=== PATIENT | male | born 1960 | race Caucasian/White ===

== ENCOUNTER 2017-07-30 22:26 | Emergency (ER) | payer BC ==
[2017-07-30 22:37] VITALS: RESP 20; TEMP 96.8
[2017-07-30] MEDS ORDERED: PROPARACAINE HCL 0.5% OPHTHALMIC SOL OP ONE (22:39)
[2017-07-30] MEDS ORDERED: PROPARACAINE HCL 0.5% OPHTHALMIC SOL ONE (22:41)
[2017-07-30 22:52] VITALS: BP 162/97; PULSE 89; O2SAT 97
== END 2017-07-30 23:07 | disposition home or self-care (01) ==
LOC: ED 22:26
DX: S05.02XA Injury of conjunctiva and corneal abrasion without foreign body, left eye, initial encounter (principal); W22.8XXA Striking against or struck by other objects, initial encounter; Y93.H2 Activity, gardening and landscaping
CPT/HCPCS: 99282

== ENCOUNTER 2018-03-27 14:38 | Emergency (ER) | payer BC ==
[2018-03-27 14:39] VITALS: O2SAT 97
[2018-03-27 15:26] VITALS: BP 163/90; PULSE 92; RESP 20; TEMP 97.8
== END 2018-03-27 15:19 | disposition home or self-care (01) ==
LOC: ED 14:38
DX: S80.11XA Contusion of right lower leg, initial encounter (principal)
CPT/HCPCS: 99282

== ENCOUNTER 2018-04-11 13:08 | Outpatient (CLI) | payer BC | END 2018-04-11 13:09 | disposition home or self-care (01) | LOC: CONVCARE 13:08 | PROVIDERS: ATTEND Orthopaedic Surgery | DX: M25.561 Pain in right knee (principal); R22.41 Localized swelling, mass and lump, right lower limb | CPT/HCPCS: 73590 ==

== ENCOUNTER 2018-09-28 09:43 | Day surgery (SDC) | payer BC ==
[~2018-09-28 09:43] MED LIST: PROPOFOL 500 MG/50 ML EMU IV ONE
[2018-09-28 11:12] VITALS: PULSE 85
[2018-09-28 11:23] VITALS: BP 146/95; RESP 18; TEMP 97.7; O2SAT 96
== END 2018-09-28 11:45 | disposition home or self-care (01) ==
LOC: SURG 09:43
PROVIDERS: ATTEND Surgery
DX: Z12.11 Encounter for screening for malignant neoplasm of colon (principal); Z80.0 Family history of malignant neoplasm of digestive organs; Z86.010 Personal history of colon polyps; K57.32 Diverticulitis of large intestine without perforation or abscess without bleeding
CPT/HCPCS: J2704

== ENCOUNTER 2019-03-18 15:04 | Emergency (ER) | payer BC ==
[2019-03-18 15:17] VITALS: RESP 24; TEMP 97.8
[2019-03-18] MEDS: ALBUTEROL NEB SOL 2.5MG/3ML 1 VIAL SOL NEB ONE (15:19)
[2019-03-18] MEDS ORDERED: ALBUTEROL NEB SOL 2.5MG/3ML 1 VIAL SOL ONE (15:19)
[2019-03-18] MEDS: PREDNISONE 20 MG TAB PO ONE (16:14)
[2019-03-18] MEDS ORDERED: PREDNISONE 20 MG TAB ONE (16:18)
[2019-03-18 16:27] VITALS: BP 158/107; PULSE 102; O2SAT 96
== END 2019-03-18 16:23 | disposition home or self-care (01) ==
LOC: ED 15:04
DX: J45.901 Unspecified asthma with (acute) exacerbation (principal); R06.02 Shortness of breath
CPT/HCPCS: 71046; 99283; J7613; A9270-GY